=== PATIENT | male | born 1980 | race Caucasian/White ===

== ENCOUNTER 2022-05-23 09:38 | Outpatient (CLI) | payer OTHER, SELFPAY ==
[2022-05-23 14:00] LABS: Chloride* 100 mmol/L (96-114); Potassium* 4.7 mmol/L (3.6-5.1); Sodium* 140 mmol/L (135-149)
[2022-05-23 14:02] LABS: Alkaline Phosphatase* 96 U/L (40-150); Aspartate Amino Transferase* 25 U/L (12-35); Bilirubin Total* 0.6 mg/dL (0.1-1.5); Blood Urea Nitrogen* 19 mg/dL (5-24); Carbon Dioxide* 31 mmol/L (20-32); Cholesterol* 248 mg/dL (90-199); Creatinine* 0.9 mg/dL (0.5-1.5); Estimated Glomerular Filt Rate 109 ml/min; Total Protein* 8.1 g/dL (6.0-8.3)
[2022-05-23 14:03] LABS: Alanine Aminotransferase* 27 U/L (4-50); Calcium* 9.5 mg/dL (8.4-10.6); Glucose* 102 mg/dL (60-115); HDL Cholesterol* 45 mg/dL (>=40); LDL Cholesterol Calculated 158 mg/dL (<100); Triglycerides* 223 mg/dL (40-149)
== END 2022-05-23 09:39 | disposition home or self-care (01) ==
PROVIDERS: PCP Physician Assistant Medical; Visit Provider Physician Assistant Medical
DX: Z00.00 Encounter for general adult medical examination without abnormal findings (principal); Z13.6 Encounter for screening for cardiovascular disorders
CPT/HCPCS: 80053; 80061

== ENCOUNTER 2023-02-24 15:37 | Outpatient (CLI) | payer BC, SELFPAY | END 2023-02-24 15:38 | disposition home or self-care (01) | PROVIDERS: PCP Physician Assistant Medical; Visit Provider Physician Assistant Medical | DX: R21 Rash and other nonspecific skin eruption (principal) | CPT/HCPCS: 82784; 84443; 86364 ==

== ENCOUNTER 2024-05-19 07:45 | Outpatient (CLI) | payer BC, SELFPAY | END 2024-05-19 07:46 | disposition home or self-care (01) | LOC: NFLDREF 05-21 14:20 | PROVIDERS: PCP Physician Assistant Medical; Referring Provider Physician Assistant Medical; Visit Provider Physician Assistant Medical | DX: Z00.00 Encounter for general adult medical examination without abnormal findings (principal); R37 Sexual dysfunction, unspecified; F41.9 Anxiety disorder, unspecified; Q64.9 Congenital malformation of urinary system, unspecified; Z13.6 Encounter for screening for cardiovascular disorders; Z12.5 Encounter for screening for malignant neoplasm of prostate | CPT/HCPCS: 80053; 80061; 84443; G0103 ==